=== PATIENT | female | born 1980 | race Caucasian/White ===

== ENCOUNTER 2017-11-03 23:00 | Emergency (ER) | payer SELFPAY ==
[~2017-11-03] VITALS: Ht 160 cm; Wt 72.7 kg
[2017-11-03 23:02] VITALS: Ht 160 cm; Wt 72.7 kg
[2017-11-04] MEDS ORDERED: NORCO 7.5/325 T1 TA1 PO (00:12)
[2017-11-04 00:57] VITALS: BP 152/97
== END 2017-11-04 00:58 | disposition home or self-care (01) ==
LOC: D.ER 23:00
DX: S93.402A Sprain of unspecified ligament of left ankle, initial encounter (principal); X50.1XXA Overexertion from prolonged static or awkward postures, initial encounter; Y93.89 Activity, other specified; Y92.019 Unspecified place in single-family (private) house as the place of occurrence of the external cause

== ENCOUNTER 2018-12-08 19:11 | Emergency (ER) | payer SELFPAY ==
[~2018-12-08] VITALS: Ht 160 cm; Wt 79.5 kg
[~2018-12-08 19:11] MED LIST: NORCO 7.5/325 T1 TA1 PO
[2018-12-08 19:30] VITALS: Ht 160 cm; Wt 79.5 kg
[2018-12-08] MEDS ORDERED: KEFLEX500 MG PO (20:38)
[2018-12-08] MEDS ORDERED: HYDROCODON-ACE1 EA10 PO (20:38)
[2018-12-08 21:30] VITALS: BP 136/92
== END 2018-12-08 21:55 | disposition home or self-care (01) ==
LOC: D.ER 19:11
DX: T22.111A Burn of first degree of right forearm, initial encounter (principal); F17.200 Nicotine dependence, unspecified, uncomplicated